=== PATIENT | male | born 1965 | race Caucasian/White ===

== ENCOUNTER 2018-02-18 11:14 | Inpatient (IN) | payer MEDICAID ==
[~2018-02-18] VITALS: Ht 167.6 cm; Wt 69.9 kg
[2018-02-18 11:15] VITALS: BP 128/83
--- NOTE | 2018-02-18 11:16 | NUR ---
PT BIBA TO ED BED 9
--- NOTE | 2018-02-18 11:30 | NUR ---
53 Y.O MALE BIBA DUE TO AMBULANCE DUE TO EXCESSIVE PAIN FROM HERNIA IN GROIN. PT STATES THAT THE HERNIA STARTED 13 YEARS AGO WITH JUST A SMALL "BALL" AND THEN 6 MONTHS AGO THE BULDGE GREW EXCESSIVELY AND NOW IS THE SIZE THAT IT IS. THE PAIN BEGAN AROUND 6 MONTHS AGO BUT HAS GOTTEN MUCH WORSE IN THE LAST DAY. THIS MORNING WHILE AT WORK, THE PAIN BECAME UNBEARABLE AND HE IS UNABLE TO STAND, WALK OR WORK. PT ALSO C/O OF INABILITY TO HAVE A BM AND IT HAS BEEN "A LONG TIME" SINCE HE HAS BEEN ABLE TO HAVE A FULL BM. THE HERNIA IS FIRM AND PAINFUL TO THE TOUCH. PTS LUNGS ARE CLEAR BILATERALLY. S1S2 HEARD. BOWEL SOUNDS ARE ACTIVE AND PRESENT IN ALL 4 QUADRANTS BUT IN THE BOTTOM TWO QUADRANTS ARE SLUGGISH. PT DENIES OTHER MEDICAL HX.
[2018-02-18] MEDS ORDERED: NACL 0.9% 1,000 ML IV SCH ×3 (11:38→13:12)
[2018-02-18] MEDS ORDERED: NACL 0.9% 1,000 ML IV ONE (11:38)
[2018-02-18] MEDS ORDERED: ONDANSETRON 4 MG/2 ML VIAL IVP ONE (11:40)
[2018-02-18] MEDS ORDERED: MORPHINE SULFATE 2 MG/ML SYR IVP ONE (11:40)
[2018-02-18] MEDS ORDERED: KETOROLAC 30 MG/ML VIAL IVP ONE (11:40)
--- NOTE | 2018-02-18 12:17 | NUR ---
EKG BEING CONDUCTED AT BEDSIDE
[2018-02-18 12:21] LABS: BASOPHILS # (AUTO) 0.1 K/uL (0.00-0.22); BASOPHILS % (AUTO) 0.6 % (0.0-2.0); EOSINOPHILS # (AUTO) 0.1 K/uL (0-0.4); EOSINOPHILS % (AUTO) 0.8 % (0.0-4.0); HEMATOCRIT 42.4 % (36-52); LYMPHOCYTES # (AUTO) 1.5 K/uL (2.0-11.5); LYMPHOCYTES % (AUTO) 13.1 % (20.5-51.1); MEAN CORPUSCULAR HEMOGLOBIN 32 pg (27-31); MEAN CORPUSCULAR HGB CONC 33 g/dL (33-37); MEAN CORPUSCULAR VOLUME 95.9 fL (80-94); MONOCYTES # (AUTO) 0.6 K/uL (0.8-1.0); MONOCYTES % (AUTO) 5.1 % (1.7-9.3); NEUTROPHILS # (AUTO) 9.1 K/uL (1.8-7.7); NEUTROPHILS % (AUTO) 80.4 % (42.2-75.2); PLATELET COUNT (AUTO) 474 K/uL (140-450); RED BLOOD CELL COUNT(AUTO) 4.42 MIL/uL (4.20-6.10); RED CELL DISTRIBUTION WIDTH 13.5 % (11.6-13.7); WHITE BLOOD COUNT (AUTO) 11.3 K/uL (4.8-10.8)
[2018-02-18 12:29] LABS: ANION GAP 8.8 (8-16); CARBON DIOXIDE 30.1 mmol/L (21-32); CREATININE 0.8 mg/dL (0.7-1.3); POTASSIUM 3.9 mmol/L (3.5-5.1)
[2018-02-18 12:35] LABS: ALBUMIN 3.3 g/dL (3.4-5.0); TOTAL BILIRUBIN 0.3 mg/dL (0.0-1.0)
--- NOTE | 2018-02-18 12:49 | NUR ---
Pt has an order for UA; pt asked for water to help. I spoke with Dr. Marquez about UA. He stated to hold off on collection as its likely the pt will ened surgery and he should NOT have water.
--- NOTE | 2018-02-18 13:07 | NUR ---
pt taken to CT
--- NOTE | 2018-02-18 13:07 | NUR ---
Contrast consent signed by pt, witness and dr. copeland
[2018-02-18] MEDS ORDERED: ONDANSETRON 4 MG/2 ML VIAL IM/IVP PRN (13:15)
[2018-02-18] MEDS ORDERED: HYDROcodone/APAP 5/325 MG 1 TAB TAB PO PRN (13:15)
[2018-02-18] MEDS ORDERED: DOCUSATE SODIUM 100 MG GELCAP PO PRN (13:15)
[2018-02-18] MEDS ORDERED: LORazepam 2 MG/ML VIAL IM/IVP PRN (13:15)
[2018-02-18] MEDS ORDERED: ZOLPIDEM 5 MG TAB PO PRN (13:15)
[2018-02-18] MEDS ORDERED: ACETAMINOPHEN 325 MG TAB PO PRN (13:15)
--- NOTE | 2018-02-18 13:57 | NUR ---
TRANSFERRED [facility] TO [facility]; GAVE BEDSIDE REPORT TO SHARA HALL FOR CONTINUATION OF CARE.
--- NOTE | 2018-02-18 14:03 | NUR ---
RECEIVED REPORT FROM ED NURSE. PT IN STABLE CONDITION. COMPLAINING OF SEVERE PAIN AT SITE OF INGUINAL/SCROTAL HERNIA. PT IS NPO EXCEPT MEDS. DR. JARAMILLO IS BEING CONSULTED FOR POSSIBLE PROCEDURE. SKIN INTACT. LUNGS CTA. HEART RHYTHM IS REGULAR. VITALS STABLE. IV SITE PATENT AND ASYMPTOMATIC, INFUSING IVF PER MD ORDERS. UPDATED THE BOARD AND INTRODUCED SELF. ALL SAFETY PRECAUTIONS IN PLACE, WILL CONTINUE TO MONITOR. Addendum: 02/18/18 at 1542 by Sharlene Roe Meng, RN UNILATERAL INGUINAL/SCROTAL HERNIA OF THE LEFT SIDE. BS PRESENT IN ALL QUADRANTS, HYPOACTIVE IN LOWER QUADRANTS. THERE IS TENDERNESS TO PALPATION IN THE LOWER ABD QUADRANTS.
[2018-02-18 14:07] LABS: FREE T4 (FREE THYROXINE) 1.09 ng/dL (0.76-1.46); PHOSPHORUS 3.3 mg/dL (2.5-4.9); THYROID STIMULATING HORMONE 1.57 uIU/mL (0.34-3.74)
[2018-02-18 14:15] VITALS: BP 139/89
--- NOTE | 2018-02-18 14:18 | NUR ---
DR. HEAD AWARE THAT MORPHINE IVP ADMINISTERED IN ED DID NOT PROVIDE ADEQUATE PAIN CONTROL FOR PT. DR. AHUMADA TO PUT IN ORDER FOR ANOTHER PAIN MEDICATION.
[2018-02-18] MEDS ORDERED: HYDROmorphone 1 MG/ML AMP IVP SCH (14:23)
--- NOTE | 2018-02-18 14:39 | NUR ---
DILAUDID IVP ADMINISTERED PER MD ORDERS. WILL CONTINUE TO MONITOR. Addendum: 02/18/18 at 1531 by Sharlene Roe Meng, RN PAIN IS 10/10 AT SITE OF SCROTAL/INGUINAL HERNIA.
[2018-02-18] MEDS: DEXT 5% /NACL 0.9% 1,000 ML IV SCH (15:18)
--- NOTE | 2018-02-18 15:31 | NUR ---
PATIENT REPORTS THAT PAIN IS NOW 8/10 AT SITE OF SCROTAL/INGUINAL HERNIA. NO ACUTE DISTRESS NOTED. WILL CONTINUE TO MONITOR.
[2018-02-18 16:00] VITALS: BP 128/79
--- NOTE | 2018-02-18 17:14 | NUR ---
PT SLEEPING IN BED. RESPIRATIONS EVEN AND UNLABORED. NO SIGNS OR SYMPTOMS OF DISTRESS. ALL SAFETY PRECAUTIONS IN PLACE, WILL CONTINUE TO MONITOR.
--- NOTE | 2018-02-18 18:30 | NUR ---
[employer]ILIZED [employer] TO EXPLAIN NGT PLACEMENT TO PATIENT. [employer] ID #[id number]. EXPLAINED THAT CT ABD SHOWED SBO AND NGT WILL BE USED FOR DECOMPRESSION. PT VOICES SOME CONFUSION BUT IS UNABLE TO COME UP WITH SPECIFIC QUESTIONS. PT WISHES TO SPEAK WITH DOCTOR. WILL NOTIFY DR. AHUMADA.
--- NOTE | 2018-02-18 18:48 | NUR ---
DR. AHUMADA IN ROOM TO SPEAK WITH PATIENT AND ANSWER ALL QUESTIONS AND CONCERNS REGARDING NGT. PT AGREES TO CONTINUE WITH INTERVENTION.
--- NOTE | 2018-02-18 18:55 | NUR ---
ATTEMPTED NGT PLACEMENT. WAS ABLE TO ADVANCE NGT 4 INCHES INTO NARES BUT PATIENT REFUSED TO CONTINUE. EXPLAINED TO PATIENT THAT SOME KINKING DURING PLACEMENT IS NORMAL AND THAT WE WILL WITHDRAW THE NGT AND ADVANCE AGAIN. PT DOES NOT WISH TO CONTINUE NGT PLACEMENT BUT WILL CONSIDER AT LATER TIME.
--- NOTE | 2018-02-18 19:25 | NUR ---
ENDORSED PLAN OF CARE TO [employer] SALES CONSULTANT RN AT BEDSIDE. PT IN STABLE CONDITION. RENZO HALL AWARE THAT PT REFUSED NGT INSERTION AT 1855 AND WILL RE-ATTEMPT AND/OR NOTIFY DOCTOR.
--- NOTE | 2018-02-18 19:25 | NUR ---
RECEIVED REPORT AT BEDSIDE FORM SHARA HALL DAYSHIFT FOR CONTINUITY OF CARE, PT IN STABLE CONDITION.
[2018-02-18 20:00] VITALS: BP 116/75
--- NOTE | 2018-02-18 20:00 | NUR ---
PT IN LOW BED WITH HOB UP 45%. HE HAS LEFT AC 20G RUNNING D5 N/S AT 100. IV SITE INTACT WITH NO S/S OF INFILTRATION NOTED. PT DENIES PAIN EXCEPT IF HE MOVES HIS LEGS , IT HURTS. PT OFFERED PRN PAIN MEDS BUT HE DECLINED AT THIS TIME. DR SCOTT AT BEDSIDE CONSULTING WITH PT REGARDING SURGERY. DR. SCOTT INFORMED THAT PT DECLINES THE NG TUBE AT THIS TIME, DR. SCOTT IS AWARE AND CONSULTED WITH PT REGARDING SURGERY FOR HERNIA REPAIR AND GAVE A VERBAL ORDER FOR PRE-OP WORK UP WELL CONSENT TO BE SIGNED. SURGERY WILL BE SCHEDULED FOR TOMORROW.
--- NOTE | 2018-02-18 20:30 | NUR ---
PT REQUESTS SOMETHING TO EAT AND WAS PROVIDED A SMALL SNACK OF BROTH , JELLO, CRACKERS AND JUICE. GIRLFRIEND AT BEDSIDE UPDATED ON PT CONDITION, PT REMINDED NOT TO EAT AFTER MIDNIGHT.
[2018-02-18] MEDS: MORPHINE SULFATE 2 MG/ML SYR IVP PRN (22:14)
--- NOTE | 2018-02-18 22:30 | NUR ---
SPOKE WITH PT VIA [employer] HOUSE PAINTER HELPER PHONE SERVICE WITH HOUSE PAINTER HELPER VIJAYA # [id number] ABOUT THE CONSENT FOR SURGERY. PT VERBALIZED UNDERSTANDING AND WAS GIVEN OPPORTUNITY TO ASK QUESTIONS REGARDING THE SURGERY, RISKS AND BENEFITS.. PT VERBALIZED UNDERSTANDING AND SIGNED CONSENT WITH PRIMARY NURSE A WITNESS. PT ALSO C/O 8/10 PAIN IN GROIN AND WAS GIVEN MORPHINE 1MG/O.5ML PRN IVP. WILL MONITOR FOR EFFECT. PT RESTING IN BED WITH SEQUENTIALS ON BLE CALL DICKERSON IN REACH AND IV FLUID RUNNING ORDERED.
[2018-02-19] VITALS: BP 110/74
[2018-02-19] MEDS: DEXT 5% /NACL 0.9% 1,000 ML IV SCH (00:42)
--- NOTE | 2018-02-19 00:49 | NUR ---
PT SLEEPING BUT AROUSABLE TO NAME, PT IN LOW BED WITH SEQUENTIAL ON BLE.. PT ASSISTED OUT OF BED AND AMBULATED INDEPENDENTLY TO TOILET AND BACK. PT ASSISTED BACK TO BED V/S FOLLOWS T 98.7 P 68 R 18 B/P 110/74 02 97% ON R/A.
[2018-02-19 04:00] VITALS: BP 108/73
--- NOTE | 2018-02-19 04:00 | NUR ---
PT SLEEPING SOUNDLY BUT AROUSABLE TO TOUCH. BED LOW SEQUNTIALS IN PLACE AND IV SITE RUNNING D5 N/S AT 100. IV SITE INTACT WITH NO S/S OF INFILTRATION NOTED. V/S FOLLOWS T 98.6 P 76 R 20 B/P 108/73 02 97 WITH R/A.CALL DICKERSON IN REACH AND FREQUENT ROUNDS PROVIDED .
--- NOTE | 2018-02-19 07:25 | NUR ---
GAVE REPORT TO LIDYA HALL DAYSHIFT NURSE FOR CONTINUITY OF CARE, PT IN STABLE CONDITION.
--- NOTE | 2018-02-19 07:26 | NUR ---
RECEIVED BEDSIDE REPORT. NO DISTRESS NOTED AT THIS TIME. PATIENT IN STABLE CONDITION. PATIENT AWARE OF SURGERY AND REASON FOR NPO STATUS. DOES NOT HAVE FURTHER QUESTIONS AT THIS TIME. IV SITE CLEAN DRY AND PATENT. CALL LIGHT WITHIN REACH WILL CONTINUE TO MONITOR.
[2018-02-19 07:31] LABS: BASOPHILS % (AUTO) 0.6 % (0.0-2.0); EOSINOPHILS # (AUTO) 0.2 K/uL (0-0.4); EOSINOPHILS % (AUTO) 2.5 % (0.0-4.0); HEMOGLOBIN 12.5 g/dL (12.0-18.0); LYMPHOCYTES # (AUTO) 2.4 K/uL (2.0-11.5); LYMPHOCYTES % (AUTO) 35.3 % (20.5-51.1); MEAN CORPUSCULAR HEMOGLOBIN 32 pg (27-31); MEAN CORPUSCULAR HGB CONC 34 g/dL (33-37); MEAN CORPUSCULAR VOLUME 95.4 fL (80-94); MONOCYTES # (AUTO) 0.6 K/uL (0.8-1.0); MONOCYTES % (AUTO) 8.8 % (1.7-9.3); NEUTROPHILS # (AUTO) 3.6 K/uL (1.8-7.7); NEUTROPHILS % (AUTO) 52.8 % (42.2-75.2); PLATELET COUNT (AUTO) 383 K/uL (140-450); RED BLOOD CELL COUNT(AUTO) 3.88 MIL/uL (4.20-6.10); RED CELL DISTRIBUTION WIDTH 13.5 % (11.6-13.7); WHITE BLOOD COUNT (AUTO) 6.7 K/uL (4.8-10.8)
[2018-02-19 07:48] LABS: ANION GAP 8.6 (8-16); CARBON DIOXIDE 27.4 mmol/L (21-32); CREATININE 0.7 mg/dL (0.7-1.3)
[2018-02-19 07:50] LABS: CHOL/HDL RATIO 2.5 (1-4.5); MAGNESIUM 1.7 mg/dL (1.8-2.4); PHOSPHORUS 3.6 mg/dL (2.5-4.9)
[2018-02-19 08:00] VITALS: BP 110/71
--- NOTE | 2018-02-19 08:00 | NUR ---
NPO MAINTAINED FOR PROCEDURE. PT ALREADY SIGNED THE SURGICAL CONSENT, VERBALIZED UNDERSTANDING.
--- NOTE | 2018-02-19 08:50 | NUR ---
PT WHEELED TO SURGERY IN STABLE CONDITION. NO COMPLAINTS MADE.
[2018-02-19] MEDS ORDERED: NICOTINE TRANSD SYS 7 MG/24 HR PATCH TD SCH (09:00)
[2018-02-19] MEDS ORDERED: NICOTINE TRANSD SYS 14 MG/24 HR PATCH TD SCH (09:00)
[2018-02-19] MEDS ORDERED: ceFAZolin 1,000 MG VIAL ONE (09:06)
[2018-02-19] MEDS ORDERED: BUPIVACAINE-MPF 0.5% 30 ML VIAL INJ ONE (09:06)
[2018-02-19] MEDS ORDERED: PROPOFOL 200 MG/20 ML VIAL IV ONE (09:12)
[2018-02-19] MEDS ORDERED: KETOROLAC 30 MG/ML VIAL IVP ONE (09:12)
[2018-02-19] MEDS ORDERED: DESFLURANE 240 ML BTL INH ONE (09:12)
[2018-02-19] MEDS ORDERED: DEXAMETHASONE 4 MG/ML VIAL IVP ONE (09:12)
[2018-02-19] MEDS ORDERED: ONDANSETRON 4 MG/2 ML VIAL IVP ONE (09:12)
[2018-02-19] MEDS ORDERED: fentaNYL 0.05 MG/ML VIAL ONE (09:20)
[2018-02-19] MEDS ORDERED: HYDROmorphone PFS 2 MG/ML SYR ONE (09:20)
[2018-02-19] MEDS ORDERED: ONDANSETRON 4 MG/2 ML VIAL IVP PRN (09:30)
[2018-02-19] MEDS ORDERED: HYDROmorphone 1 MG/ML AMP IVP PRN (09:30)
[2018-02-19 11:20] VITALS: BP 114/81
--- NOTE | 2018-02-19 11:20 | NUR ---
PT BACK FROM SURGERY IN STABLE CONDITION. S/P OPEN LEFT INGUINAL HERNIA REPAIR WITH MESH. LEFT INGUINAL DRESSING DRY AND INTACT. PT AAOX4. NO C/O PAIN AT THIS TIME. VITAL SIGNS STABLE. FAMILY AT THE BEDSIDE.
[2018-02-19 11:50] VITALS: BP 117/82
[2018-02-19] MEDS: MORPHINE SULFATE 2 MG/ML SYR IVP PRN (12:49)
--- NOTE | 2018-02-19 12:49 | NUR ---
PATIENT RESTING IN BED WITH FAMILY MEMBERS AT BEDSIDE. PATIENT VITAL SIGNS WITHIN NORMAL LIMITS. PATIENT STATES HAS PAIN RADIATING TO LEFT LEG. ADMINISTERED MORPHINE IVP PER ORDERS. WILL CONTINUE TO MONITOR. CALL LIGHT WITHIN REACH. WILL CONTINUE TO MONITOR
--- NOTE | 2018-02-19 13:05 | NUR ---
PT TOLERATED FULL LIQUIDS WELL. NO N&V NOTED.
[2018-02-19] MEDS ORDERED: MAGNESIUM OXIDE 400 MG TAB PO SCH (14:00)
--- NOTE | 2018-02-19 15:00 | NUR ---
PT VOIDED FREELY ON THE URINAL, 700 MLS OF CLEAR YELLOW URINE NOTED.
[2018-02-19 15:43] VITALS: BP 113/80
[2018-02-19] MEDS ORDERED: ACET-2863 PO (16:11)
[2018-02-19] MEDS ORDERED: DOCU-299 PO (16:12)
--- NOTE | 2018-02-19 16:55 | NUR ---
DISCHARGE PHOTOGRAPH TAKEN. DR. DE LA GARZA NOTIFIED ABOUT SLIGHT SPIKE THROUGH DRAINAGE ON THE WOUND DRESSING ON LEFT INGUINAL AREA. PER DR DE LA GARZA NOT TO REMOVE DRESSING FOR 24 HOURS.
--- NOTE | 2018-02-19 17:25 | NUR ---
PATIENT SIGNED DISCHARGE. ARM BANDS REMOVED. REMOVED IV CATH INTACT. PATIENT STABLE. NO DISTRESS NOTED AT THIS TIME.
--- NOTE | 2018-02-19 17:30 | NUR ---
PATIENT IS IN STABLE CONDITION. EDUCATED HIM ON DRESSING CHANGE AND SIGNS AND SYMPTOMS OF INFECTION SUCH TEMP, DRAINAGE, PAIN, SOB. INFORMED HIM ON MEDICATION PRESCRIPTION. AND TO CALL ON WEDNESDAY FOR A FOLLOW UP APPOINTMENT IN 5-[address] SCOTT. PATIENT VERBALIZE UNDERSTANDING. ESCORTED HIM OUT WITH DAUGHTER AND BROTHER.
== END 2018-02-19 17:30 | disposition home or self-care (01) | DRG 228 ==
LOC: MED 11:14 → MTU 13:12
PROVIDERS: ADMIT General Practice; ATTEND General Practice
PROC: 0YU60JZ Supplement Left Inguinal Region with Synthetic Substitute, Open Approach (ICD-10-PCS; principal; 2018-02-19 09:00)
DX: K40.30 Unilateral inguinal hernia, with obstruction, without gangrene, not specified as recurrent (principal); E44.0 Moderate protein-calorie malnutrition; F17.210 Nicotine dependence, cigarettes, uncomplicated; E83.42 Hypomagnesemia; N50.82 Scrotal pain; E66.3 Overweight; Z68.28 Body mass index [BMI] 28.0-28.9, adult; Z71.6 Tobacco abuse counseling
CPT/HCPCS: 36415; 71045; 80048; 80053; 82150; 83036; 83605; 83690; 83735; 83880; 84100; 84436; 84439; 84443; 84484; 85025; 85610; 85730; 86886; 86900; 86901; 87081; 93005; 96361; 96375; 99285; G0482; J0690; J1100; J1170; J1885; J2270; J2405; J2704; J3010; J3490; J7030; J7042; Q9967